=== PATIENT | female | born 1970 | race Caucasian/White ===

== ENCOUNTER 2016-04-24 06:41 | Day surgery (SDC) | payer MEDICARE | END 2016-04-24 15:41 | disposition home or self-care (01) | LOC: SDC 06:41 | PROVIDERS: ATTEND Internal Medicine Gastroenterology | PROC: 0W9G3ZZ Drainage of Peritoneal Cavity, Percutaneous Approach (ICD-10-PCS; principal; 2016-04-24) | DX: R18.8 Other ascites (principal); K21.9 Gastro-esophageal reflux disease without esophagitis; F17.210 Nicotine dependence, cigarettes, uncomplicated; Z88.0 Allergy status to penicillin; Z88.8 Allergy status to other drugs, medicaments and biological substances; Z79.899 Other long term (current) drug therapy; Z86.19 Personal history of other infectious and parasitic diseases ==

== ENCOUNTER 2016-05-05 06:25 | Day surgery (SDC) | payer MEDICARE | END 2016-05-05 10:06 | disposition home or self-care (01) | LOC: SDC 06:25 | PROVIDERS: ATTEND Internal Medicine Gastroenterology | PROC: 0W9G3ZZ Drainage of Peritoneal Cavity, Percutaneous Approach (ICD-10-PCS; principal; 2016-05-05) | DX: R18.8 Other ascites (principal); K74.60 Unspecified cirrhosis of liver; B19.20 Unspecified viral hepatitis C without hepatic coma ==

== ENCOUNTER 2016-05-13 06:13 | Day surgery (SDC) | payer MEDICARE | END 2016-05-13 09:08 | disposition home or self-care (01) | LOC: SDC 06:13 | PROVIDERS: ATTEND Internal Medicine Gastroenterology | PROC: 0W9G3ZZ Drainage of Peritoneal Cavity, Percutaneous Approach (ICD-10-PCS; principal; 2016-05-13) | DX: R18.8 Other ascites (principal); Z86.19 Personal history of other infectious and parasitic diseases; Z79.899 Other long term (current) drug therapy; Z88.0 Allergy status to penicillin; Z88.8 Allergy status to other drugs, medicaments and biological substances; F17.210 Nicotine dependence, cigarettes, uncomplicated ==

== ENCOUNTER 2016-05-21 06:19 | Day surgery (SDC) | payer MEDICARE | END 2016-05-21 10:49 | disposition home or self-care (01) | LOC: SDC 06:19 | PROVIDERS: ATTEND Internal Medicine Gastroenterology | PROC: 0W9G3ZZ Drainage of Peritoneal Cavity, Percutaneous Approach (ICD-10-PCS; principal; 2016-05-21) | DX: R18.8 Other ascites (principal); K74.69 Other cirrhosis of liver; K73.9 Chronic hepatitis, unspecified ==